=== PATIENT | female | born 1950 | race Caucasian/White ===

== ENCOUNTER 2022-01-12 17:01 | Emergency (ER) | payer MEDICARE, OTHER ==
[~2022-01-12] VITALS: Ht 167.6 cm; Wt 92.0 kg
[2022-01-12] MEDS ORDERED: IBUPROFEN 600MG TABLET PO STA (18:24)
[2022-01-12] MEDS ORDERED: HYDR-4001 MT (20:41)
[2022-01-12] MEDS ORDERED: HYDROCODONE/ACETAMINOPHEN 5/325MG TABLET PO ONE (20:45)
[2022-01-12 21:45] VITALS: BP 137/57
== END 2022-01-12 22:03 | disposition home or self-care (01) ==
LOC: ER 17:16
DX: S82.092A Other fracture of left patella, initial encounter for closed fracture (principal); W18.39XA Other fall on same level, initial encounter; Y93.89 Activity, other specified; Y92.89 Other specified places as the place of occurrence of the external cause; Y99.8 Other external cause status; E11.9 Type 2 diabetes mellitus without complications
CPT/HCPCS: 73560; 99283; L1830